=== PATIENT | male | born 1995 | race Caucasian/White ===

== ENCOUNTER → 2020-08-30 16:48 | Outpatient (CLI) | payer OTHER, SELFPAY ==
--- NOTE | 2020-08-30 16:51 | CT_ITS ---
SIINUSITIS FRONTAL Tamp; BILAT MAXILLARYRIGHT COCHLEAR IMPLANT/LEFT HEARING AID EXAMINATION: CT Sinuses W/O Contrast Injection TECHNIQUE: Helically acquired images were obtained of the paranasal sinuses. A radiation dose optimization technique was used for this scan. IV Contrast dosage and agent: None COMPARISON: None FINDINGS: FRONTAL SINUSES AND RECESSES: The left frontal sinus is not aerated. The right frontal sinus is clear. The right frontal ethmoidal recess is clear ETHMOID AIR CELLS: Clear. MAXILLARY SINUSES: Minimal mucosal thickening seen within the bilateral maxillary sinuses OSTIOMEATAL COMPLEXES: Patent on the left. Minimal mucosal thickening on the right SPHENOID SINUSES: Clear. SPHENOETHMOIDAL RECESSES: Clear. Ancillary findings: NASAL TURBINATES: Slightly thickened on the right particularly the middle and inferior turbinates NASAL SEPTUM: Midline. ORBITS: Unremarkable. VISUALIZED DENTITION: No periodontal osseous erosion. ANTERIOR CRANIAL FOSSA: Unremarkable. Incidental note is made of a right posterior parietal craniotomy defect CT/Sinus/Facial Bone IMPRESSION: Left frontal sinus is not aerated Minimal mucosal thickening is seen within the bilateral maxillary sinuses There is mucosal thickening that is minimal seen at the right ostiomeatal complex Slight mucosal thickening of the right inferior and middle nasal turbinates Right posterior parietal herniotomy defect Individualized dose optimization techniques were used for this CT. at 0558 Reported and signed by: Mary Carrasco DO Electronically Signed: Mary Carrasco DO at 5:57 EST Tel , Service support ,
== END ==
PROVIDERS: PCP Family Medicine; Referring Provider Otolaryngology; Visit Provider Otolaryngology
DX: J32.9 Chronic sinusitis, unspecified (principal)
CPT/HCPCS: 70486

== ENCOUNTER → 2020-10-04 16:56 | Outpatient (CLI) | payer OTHER, SELFPAY | PROVIDERS: PCP Family Medicine; Referring Provider Otolaryngology; Visit Provider Otolaryngology | DX: Z11.59 Encounter for screening for other viral diseases (principal) | CPT/HCPCS: 87635; C9803; U0005; U0003 ==

== ENCOUNTER → 2023-06-19 | Outpatient (CLI) | payer OTHER, SELFPAY ==
[2023-06-19 12:56] LABS: Cholesterol 180 mg/dL (200); High Density Lipoprotein 38 mg/dL; Thyroid Stim Hormone (TSH) 0.89 uIU/mL (0.358-3.74); Triglycerides 194 mg/dL; Very Low Density Lipoprotein 39 mg/dL (5-40)
== END | disposition home or self-care (01) ==
LOC: BFHLAB 10:25
PROVIDERS: PCP Family Medicine; Visit Provider Family Medicine
DX: Z00.00 Encounter for general adult medical examination without abnormal findings (principal); R53.83 Other fatigue
CPT/HCPCS: 36415; 80061; 84439; 84443